=== PATIENT | male | born 1965 | race Caucasian/White ===

== ENCOUNTER 2019-09-10 06:07 | Inpatient (IN) ==
--- NOTE | 2019-08-14 16:01 | PAT Medication Instructions ---
Medication Instructions Date of Service August 14, 2019 Home Medications amlodipine-benazepril 1 cap PO QAM carvedilol 12.5 mg PO BID hydrochlorothiazide 12.5 mg PO QAM simvastatin 40 mg PO QAM valacyclovir [Valtrex] 500 mg PO BID PRN Continue as directed valacyclovir [Valtrex] 500 mg PO BID PRN (if needed) DO NOT take the morning of surgery amlodipine-benazepril 1 cap PO QAM hydrochlorothiazide 12.5 mg PO QAM Take morning of surgery With a small sip of water, OTHERWISE NOTHING TO EAT OR DRINK AFTER MIDNIGHT: carvedilol 12.5 mg PO BID simvastatin 40 mg PO QAM Other Notes If you have any questions please call us at [phone] or [phone] or or [phone]
--- NOTE | 2019-08-16 08:32 | History & Physical Report ---
Date of Service August 16, 2019 date of surgery: 09-10-19 Assessment & Plan (1) Primary localized osteoarthritis of right knee: Risks and benefits of procedure discussed in detail today, patient would like to proceed with a Right total knee replacement at [facility] as scheduled. will obtain medical clearance prior to surgery as well as obtain PATs at [facility]. Will place on ASA 81mg po bid x 1 month post op, f/u 2 weeks post op for routine post-operative care and x-ray, sooner if having any problems. will make arrangements for HHPT at the time of discharge. At this point in time, has failed conservative measures and would like to proceed with surgical intervention. History of Present Illness Chief Complaint: right knee pain Primary Care Provider: NO PCP Mr Adams is a 53 year old male who is here for a follow up of right knee pain, presents for pre-op evaluation prior to a right total knee replacement at [facility]. He presents with pain and decreased range of motion in the right knee. He states that the symptoms have been chronic non-traumatic and states symptoms occur constantly with intermittent worsening. Currently the patient states that the symptoms are moderate-severe and is described as aching and dull. He rates his current pain as 4/10 and worst is 7/10. The symptoms are aggravated by first steps while awake, daily activities, work activities, walking and squatting. Pt had synviscOne injections in the past with no relief. unable to take NSAIDs due to stomach irritation, occasional Tylenol use. at this point, pain is affecting his daily activities and would like to proceed with a Right total knee replacement. has also had previous knee scope as listed below. Allergies Allergy/AdvReac Type Severity Reaction Status Date / Time amoxicillin Allergy Intermediate Rash Verified 08/12/19 12:14 ibuprofen AdvReac Unknown upset Verified 08/12/19 12:15 stomach Home Medications Home Medications Medication Instructions Recorded Confirmed Type amlodipine-benazepril 1 cap PO QAM 08/12/19 08/12/19 History carvedilol 12.5 mg PO BID 08/12/19 08/12/19 History hydrochlorothiazide 12.5 mg PO QAM 08/12/19 08/12/19 History simvastatin 40 mg PO QAM 08/12/19 08/12/19 History valacyclovir [Valtrex] 500 mg PO BID PRN 08/12/19 08/12/19 History Past Med/Surg History Medical History Anxiety hx. no problems recently. Cardiac murmur as a child, no problems currently. Hyperlipidemia Hypertension Nausea and vomiting after administration of anesthetic agent Osteoarthritis Surgical History Fusion of spine with discectomy with C5-C6. Full ROM. History of adenoidectomy History of tonsillectomy S/P left knee arthroscopy x2 S/P right knee arthroscopy x2 Family History Aunt Family history of diabetes mellitus Grandmother Family history of esophageal cancer Social History Preferred Language: Scottish Communication Ability: Effective Grade And Center Marker Required: No Beliefs That Will Affect Care: None Current Living Situation: Spouse Other Information That Helps Us Care for You: No Feels Safe at Home: Yes Safety Concerns: Feels Safe At This Time Smoking Status: Never smoker Tobacco Type: smokeless tobacco ; Do You Dip or Chew Tobacco: Yes (2 cans/week (advised)) ; Second Hand Exposure: No ; Tobacco Cessation Education Requested by Patient: No Hx Alcohol Use: Yes Alcohol type: beer Hx Substance Use: No Review of Systems Review of Systems: All systems reviewed & are unremarkable except as noted in HPI & below Constitutional: no fever, no chills and no sweats Respiratory: no cough and no dyspnea Cardiovascular: no chest pain, no dyspnea and no orthopnea Gastrointestinal: no abdominal pain, no nausea and no vomiting Musculoskeletal: as per Subjective / HPI Physical Exam Physical Exam: Ht: 6ft Wt: 115.7kg BP: 118/76 Pulse: 80 Constitutional: WD/WN, vitals as above no acute distress Respiratory: normal respiratory effort, lungs clear to auscultation no respiratory distress, no labored breathing and does not use accessory muscles Cardiovascular: RRR, no murmur, no edema Gastrointestinal (Abdomen): normal bowel sounds, soft, nontender, no hepatosplenomegaly Musculoskeletal: Knee: + knee abnormal to inspection (RIGHT KNEE: ), + effusion (+1 effusion), + surgical incision (well healed portals), + limited ROM of knee (ROM 0/3/110), + knee ROM with crepitation, + joint line tenderness (me dial joint line) and + Luiz's sign positive; no skin erythema, no ecchymosis, no valgus laxity, no varus laxity, anterior drawer test negative, Darline's sign negative and pivot shift test negative Results & Data Diagnostic Findings right knee x-ray from 03/22/19 showing complete loss joint space medial compartment with overall varus alignment, there is also narrowing of the lateral compartment and patellofemoral joint. there is osteophyte formation, subchondral sclerosis noted, no loose bodies, no acute bony pathology. overall impression tricompartmental degenerative changes to the right knee.
--- NOTE | 2019-08-16 12:26 | Anesthesiology Consultation ---
Date of Service August 16, 2019 Assessment & Plan (1) Encounter for pre-operative examination: Chart Review Chart Review: Pending: Refer to Additional Notes / Consult section (pending preop testing (labs, EKG, CXR)) and Patient seen in Pre Admission Testing Teaching & Discussion Pre-Anesthesia Teaching/Discussion Notes: Instructed NPO after midnight before surgery,except medications with 15 cc of water. Medication instructions provid ed according to the PAT guidelines. History Surgery Operation Date: 09/10/19 08:55 Proposed Procedures p Right Total Knee Arthroplasty - Jose L Mitchell DO Height/Weight Height: 6 ft Weight: 118.3 kg Allergies Allergy/AdvReac Type Severity Reaction Status Date / Time amoxicillin Allergy Intermediate Rash Verified 08/12/19 12:14 ibuprofen AdvReac Unknown upset Verified 08/12/19 12:15 stomach Medications Home Medications Medication Instructions Recorded Confirmed Last Taken amlodipine-benazepril 1 cap PO QAM 08/12/19 08/12/19 Unknown carvedilol 12.5 mg PO BID 08/12/19 08/12/19 Unknown hydrochlorothiazide 12.5 mg PO QAM 08/12/19 08/12/19 Unknown simvastatin 40 mg PO QAM 08/12/19 08/12/19 Unknown valacyclovir [Valtrex] 500 mg PO BID PRN 08/12/19 08/12/19 Unknown Past Medical History Medical History Anxiety hx Hyperlipidemia Hypertension Obesity Osteoarthritis Exercise / Class Metabolic Activity II 4-5 Yardwork/Stairs/Walk up hill Past Family History Family History Aunt Family history of diabetes mellitus Grandmother Family history of esophageal cancer Past Surgical History Surgical History Fusion of spine C5-C6 History of adenoidectomy History of tonsillectomy S/P left knee arthroscopy x2 S/P right knee arthroscopy x2 Past Anesthesia History No Hx of Anesthesia Complications (except PONV) and No Family Hx of Anesthesia Complications History of PONV History of PONV and Hx of Motion Sickness (occasional) Social History Smoking Status: Never smoker Do You Dip or Chew Tobacco: Yes (2 cans/week (advised NPO)) Hx Alcohol Use: Yes Alcohol type: beer alcohol intake frequency: a few times a week Hx Substance Use: No substance use type: does not use Review of Systems Patient denies chest pain, shortness of breath, dyspnea on exertion, reflux, cough, wheezing, palpitations. Physical Exam Vital Signs VITALS BP 121/76 P 59 TEMP 98.0 SP02 98%RA RESP 16 PHYSICAL Full neck and c-spine range of motion. Full TMJ range of motion. TMD 3.5 finger breaths Mallampati Score 3 Dentition: missing molars Lungs: clear throughout to auscultation Cardiac: regular rate and rhythm, no murmurs noted Spine: normal Carotid arteries: negative bruit Extremities: no edema
--- NOTE | 2019-08-16 12:55 | XRay Report ---
XR chest Pre-admission PA/Lat CLINICAL HISTORY: 53 years-old Male presenting with preoperative assessment. TECHNIQUE: PA and lateral views of the chest were obtained. COMPARISON: None. FINDINGS: Cardiac silhouette top normal in size. Lungs and pleural spaces clear. Degenerative changes of the th oracic spine. Upper abdomen normal. IMPRESSION: 1. No acute cardiopulmonary disease. Electronically signed by: Oscar Yoder M.D. 08/16/2019 12:54 PM
[2019-08-16 14:31] LABS: Basophils # (auto) 0.05 K/uL (0-0.2); Basophils % (auto) 0.7 %; Eosinophils # (auto) 0.42 K/uL (0-0.5); Eosinophils % (auto) 5.9 %; Hematocrit (blood only) 41.7 % (42-52); Immature Granulocytes # (auto) 0.03 K/uL (0.00-0.02); Immature Granulocytes % (auto) 0.4 %; Lymphocytes # (auto) 2.07 K/uL (1.2-3.4); Mean Corpuscular Hemoglobin 29.2 pg (25-34); Mean Corpuscular Hgb Conc 33.6 g/dL (32-36); Mean Corpuscular Volume 86.9 fL (80-100); Mean Platelet Volume 10.5 fL (7.4-10.4); Monocytes # (auto) 0.51 K/uL (0.11-0.59); Monocytes % (auto) 7.1 %; Neutrophils # (auto) 4.06 K/uL (1.4-6.5); Neutrophils % (auto) 56.9 %; Platelet Count 280 K/uL (130-400); RDW Coefficient of Variation 12.7 % (11.5-14.5); RDW Standard Deviation 40.9 fL (36.4-46.3); White Blood Count 7.14 K/uL (4.8-10.8)
[2019-08-16 14:34] LABS: Appearance Urine Clear (Clear); Bilirubin Urine Negative (Negative); Blood Urine Negative (Negative); Color Urine Yellow; Glucose Urine UA Negative (Negative); Ketones Urine Negative (Negative); Leukocyte Esterase Urine Negative (Negative); Nitrite Urine Negative (Negative); Protein Urine Negative (Negative); Specific Gravity Urine 1.016 (1.000-1.030); Urobilinogen Urine Negative (Negative); pH Urine 7.5 (4.5-7.5)
[2019-08-16 14:38] LABS: Albumin Level 3.9 gm/dl (3.4-5.0); BUN Creatinine Ratio 12.8 (10-20); Calcium 9.3 mg/dl (8.5-10.1); Creatinine Clr Calc Pharmacy 110.8 ml/min; Est GFR (African American) 97.8; Est GFR (Non-African American) 84.4; Potassium 3.8 mmol/L (3.5-5.1)
[2019-08-16 14:41] LABS: Partial Thromboplastin Time 26.1 Seconds (21.0-31.0); Prothrombin Time 10.6 Seconds (9.0-12.0)
[2019-08-17 06:27] LABS: Estimated Average Glucose 120 mg/dl; Hemoglobin A1C 5.8 % (4.5-5.6)
[~2019-09-10 06:07] MED LIST: ACETAMINOPHEN 500 MG TAB PO SCH; CLINDAMYCIN 600 MG/54 ML BAG IV SCH; CeleBREX 200 MG CAP PO SCH; FAMOTIDINE 20 MG TAB PO SCH; GABAPENTIN 600 MG DOSE PO SCH; LR 15ML/HR IV SCH; LR 500ML BOLUS, THEN 15ML/HR IV SCH; METOCLOPRAMIDE HCL 10 MG TABLET PO SCH; ROPIVACAINE 0.5% HCL/PF 150 MG, BUPIVACAINE 0.5% MPF 30 ML, EPINEPHrine 30MG/30ML (OR U... INFIL SCH; TRANEXAMIC ACID 1,000 MG **IV Pre-op IV SCH; dexAMETHasone 4 MG TAB PO SCH
[2019-09-10] MEDS ORDERED: BUPIVACAINE 0.5 % 5 MG/1 ML PF 10ML VIAL ONE (06:23)
[2019-09-10] MEDS ORDERED: PROPOFOL IV EMULSION 10 MG/ML 20 ML VIAL IV ONE ×2 (06:30→10:24)
[2019-09-10] MEDS ORDERED: LIDOCAINE HCL 2% 2 ML VIAL/AMP(20MG/ML) INFIL ONE (06:30)
[2019-09-10] MEDS ORDERED: TRANEXAMIC ACID 1,000 MG **IV Intra-op IV SCH (06:30)
[2019-09-10] MEDS ORDERED: MIDAZOLAM HCL 1 MG/ML 2ML VIAL ONE ×2 (06:30→10:07)
[2019-09-10] MEDS ORDERED: fentaNYL citrate 100 MCG/2 ML VIAL ONE (06:30)
--- NOTE | 2019-09-10 07:11 | History & Physical Bridge Note ---
Date of Service September 10, 2019 History & Physical Bridge Note I have examined the patient, reviewed the History & Physical and in the interval since the performance of the History & Physical I have noted the following changes of clinical significance: no changes noted
[2019-09-10] MEDS ORDERED: ATROPINE SULFATE 0.1 MG/ML 10ML SYR IV PRN (07:19)
[2019-09-10] MEDS ORDERED: fentaNYL citrate 100 MCG/2 ML VIAL IV PRN (07:19)
[2019-09-10] MEDS ORDERED: ONDANSETRON INJ 2 MG/ML 2 ML VIAL IV PRN ×2 (07:19→11:59)
[2019-09-10] MEDS ORDERED: ePHEDrine sulfate 50 MG/ML AMP IV PRN (07:19)
[2019-09-10] MEDS ORDERED: ORTHO JOINT ANESTHETIC ONE (08:03)
[2019-09-10] MEDS ORDERED: BACITRACIN INJ 50,000 UNIT VIAL ONE (08:03)
--- NOTE | 2019-09-10 09:52 | Operative Report ---
Post Operative Report Pre & Post Diagnosis Operation Date: 09/10/19 08:35 Pre-Op Diagnosis: RIGHT KNEE OSTEOARTHRITIS Post-Op Diagnosis: RIGHT KNEE OSTEOARTHRITIS I identified the patient and participated in the time-out.: Yes Procedure Operation Date: 09/10/19 08:35 Actual Procedures p Right Total Knee Arthroplasty(Right) utilizing [employer] journey 2 patient matched total knee arthroplasty size 6 femur 7 tibia 13 poly-32 oval patella- Jose L Mitchell DO Surgeon Jose L Mitchell DO Principal Clerk Michael WONG Estimated Blood Loss 5 Findings Consistent with Post-Op Diagnosis Patient presents with severe end-stage DJD right knee with varus alignment subchondral cystic changes marginal osteophytes moderate to large effusion eburnated [id number] tricompartmentally Specimens Bone cartilage Drains Medium bore Hemovac Complications none Disposition Accompanied Patient To Recovery: No Disposition: Recovery Room Indications Patient presents as a [age]-year-old white male being seen by with planes of ongoing pain to the right knee for right total knee arthroplasty patient is failed attempted conservative management with physical therapy anti-in flammatories relative rest activity modification corticosteroid injections Visco supplementation the above intraoperative findings were noted. Description of Procedure After proper identification of the patientAfter proper prepping and draping of the Right lower extremity anterior midline incision was made over the region of the extensor extensor mechanism after meticulous hemostasis was obtained and maintained in subcutaneous tissues a medial parapatellar incision was made The patella was subluxed lateralward the medial lateral gutter were cleaned from any hypertrophic synovitis and scar tissue of the distal femoral block was placed and the distal femoral osteotomy cut was made subsequently the chamfers anterior and posterior osteotomy cuts were made utilizing the 4-in-1 block the tibia was subsequently subluxed anteriorward medial and ateral meniscal remnants were excised in their entirety remnants of the anterior and posterior cruciate ligaments were excised in their entirety excellent exposure of the proximal tibia was obtained the tibial osteotomy guide was placed on the proximal tibial osteotomy cut was made once again the knee was irrigated with copious amounts of sterile saline solution the patella was subsequently everted lateralward thickened scar tissue around the patella was removed the patella was subseq uently cut utilizing a freehand technique and was drilled prepared for final preparation and placement of patella socially flexion-extension gaps were checked and the equal and symmetric trials were placed to the appropriate femoral and tibial trials with poly-spacer being placed for equal flexion and extension gaps and full range of motion including extension to 0 and flexion to 140 the trial components after having been taken to recovery range of motion was subsequently removed meticulous hemostasis was obtained and maintained subsequently a knee block injection of joint cocktail including ropivacaine 0.5% 150 mg. Bupivacaine 0.5% epinephrine 1-200,030 mL's toradol 30 mg dexamethasone 4 mg ketamine 10 mg clonidine 100 micrograms normal saline solution 30 mg was infiltrated into the soft tissues of the posterior knee medial lateral gutters and periosteal synovium special attention was paid to protect neurovascular structures at all times subsequently trial components having been removed the knee was irrigated with sterile saline solution. debris was removed the proximal tibia was subsequently prepared and was made ready for the placement of the tibial component tibial component was also cemented and tamped into position the femoral component was subsequently placed and cemented in the position the patellar component was subsequently cemented in position because hemostasis once again obtained and maintained wound having been thoroughly irrigated with debridement and debridement lavage was performed as well as a medial parapatellar incision closed with #1 Vicryl in interrupted fashion subcutaneous was closed with #2 Vicryl skin was closed with skin clips. PA-C was necessary for prepping and drapping as well as wound closure of deep fascia Sub cutaneous tissue and skin and was necessary for the case. A sterile compressive dressing was placed patient was taken to recovery in stable condition of report dictated by Stephen I attest to the content of the Intraoperative Record and any orders documented therein. Any exceptions are noted below. I attest to the content of the Intraoperative Record and any orders documented therein. Any exceptions are noted below.
--- NOTE | 2019-09-10 11:00 | XRay Report ---
XR knee RT 1 or 2V routine HISTORY: 53 years-old Male Surgical Post Op right knee total joint arthroplasty. COMPARISON: None available TECHNIQUE: 2 views of the right knee FINDINGS: Right knee total joint arthroplasty and patella resurfacing demonstrates satisfactory alignment. Elec tronic battery pack device projects over the distal thigh. Surgical drainage catheter is noted along with expected postsurgical soft tissue swelling and deep tissue air. No acute fracture, dislocation o r opaque foreign body identified. IMPRESSION: Satisfactory alignment of the right knee total joint arthroplasty. The above report was generated using voice recognition software. It may contain grammatical, syntax o r spelling errors. Electronically signed by: Rufino Uribe M.D. 09/10/2019 10:58 AM
--- NOTE | 2019-09-10 11:06 | Anesthesiology Progress Note ---
Date of Service September 10, 2019 Anesthesia Post Procedure Vital Signs Vital Signs: Temp Pulse Pulse Resp BP Pulse Ox 09/10/19 11:00 74 14 111/66 96 09/10/19 10:50 68 14 109/65 98 09/10/19 10:44 97.5 F L 76 12 111/65 96 09/10/19 06:45 98.1 F 69 20 127/89 98 Pain Intensity Right Knee: Pain Intensity: 2 Transfer of Care Handoff Completed per policy Notes Mental Status: alert / awake / arousable and participated in evaluation Patient Amnestic to Procedure: Yes Nausea / Vomiting: adequately controlled Pain: adequately controlled Airway Patency, RR, SpO2: stable & adequate BP & HR: stable & adequate Hydration State: stable & adequate Neuraxial Anesthesia: was administered and sensory block is resolving Anesthetic Complications: no major complications apparent and Pt Satisfied with anesthetic care
[2019-09-10] MEDS ORDERED: NALOXONE HCL 0.4 MG/1 ML VIAL/CARP IV PRN (11:59)
[2019-09-10] MEDS ORDERED: bisacodyL 10 MG SUPP PR PRN (11:59)
[2019-09-10] MEDS ORDERED: MAGNESIUM HYDROXIDE SUSP 30 ML UDC PO PRN (11:59)
[2019-09-10] MEDS: OXYCODONE HCL IR 5 MG TAB (IMMEDIATE RELEASE) PO PRN ×2 (12:28→23:47)
[2019-09-10] MEDS: SODIUM CHLORIDE 0.9% 1000ML 1,000 ML IV SCH ×2 (13:12→22:06)
[2019-09-10] MEDS: HYDROmorphone INJ 0.5 MG/0.5 ML SYR IV PRN (13:15)
[2019-09-10] MEDS: ACETAMINOPHEN 500 MG TAB PO SCH ×2 (13:16→22:06)
[2019-09-10] MEDS: CLINDAMYCIN 600 MG in DEXTROSE 5% 50 ML IV SCH ×2 (16:27→23:43)
[2019-09-10] MEDS: SENNA 8.6 MG TAB PO SCH (20:46)
[2019-09-10] MEDS: ASPIRIN 81 MG ECTAB PO SCH (20:47)
[2019-09-10] MEDS: DOCUSATE SODIUM 100 MG CAP PO SCH (20:47)
[2019-09-10] MEDS: carvediloL 12.5 MG TAB PO SCH (20:47)
[2019-09-11] MEDS: ACETAMINOPHEN 500 MG TAB PO SCH ×3 (05:28→21:10)
[2019-09-11 06:05] LABS: Hematocrit (blood only) 38.9 % (42-52); Mean Corpuscular Hemoglobin 29.5 pg (25-34); Mean Corpuscular Hgb Conc 33.4 g/dL (32-36); Mean Corpuscular Volume 88.4 fL (80-100); Mean Platelet Volume 10.4 fL (7.4-10.4); Platelet Count 256 K/uL (130-400); RDW Coefficient of Variation 12.7 % (11.5-14.5); RDW Standard Deviation 40.9 fL (36.4-46.3); White Blood Count 21.37 K/uL (4.8-10.8)
[2019-09-11 06:43] LABS: BUN Creatinine Ratio 15.4 (10-20); Calcium 8.6 mg/dl (8.5-10.1); Creatinine Clr Calc Pharmacy 101.4 ml/min; Est GFR (African American) 88.1; Potassium 3.9 mmol/L (3.5-5.1)
[2019-09-11] MEDS: carvediloL 12.5 MG TAB PO SCH ×2 (08:40→20:53)
[2019-09-11] MEDS: DOCUSATE SODIUM 100 MG CAP PO SCH ×2 (08:40→20:51)
[2019-09-11] MEDS: ASPIRIN 81 MG ECTAB PO SCH ×2 (08:41→20:54)
[2019-09-11] MEDS: ENALAPRIL MALEATE 10 MG TAB PO SCH (08:41)
[2019-09-11] MEDS: AMLODIPINE BESYLATE 5 MG TAB PO SCH (08:41)
[2019-09-11] MEDS: MULTIVITAMIN TAB PO SCH (08:41)
[2019-09-11] MEDS: OXYCODONE HCL IR 5 MG TAB (IMMEDIATE RELEASE) PO PRN ×3 (08:41→17:46)
[2019-09-11] MEDS: SIMVASTATIN 40 MG TAB PO SCH (08:41)
--- NOTE | 2019-09-11 10:03 | Orthopedic Progress Note ---
Date of Service September 11, 2019 Assessment & Plan (1) History of total right knee replacement: POD #1 s/p Right TKA pt/ot dvt proph with SHABANA/SCD/ASA plan for d/c home with HHPT when stable Subjective POD #1 s/p Right TKA Review of Systems Constitutional: no fever, no chills and no sweats Respiratory: no cough and no dyspnea Cardiovascular: no chest pain and no dyspnea Gastrointestinal: no abdominal pain, no nausea and no vomiting Physical Exam Physical Exam: Vital Signs Temp 36.4 C L 09/11/19 07:50 Pulse 68 09/11/19 07:50 Resp 16 09/11/19 07:50 BP 128/70 09/11/19 07:50 Pulse Ox 96 09/11/19 07:50 Intake & Output 09/10/19 09/11/19 09/11/19 18:59 06:59 18:59 Intake Total 2278 / 4507 2229 / 4507 222 / 222 Output Total 530 / 1480 950 / 1480 Balance 1748 / 3027 1279 / 3027 222 / 222 Weight 117.707 kg Intake: IV 1608 / 3087 1479 / 3087 Cleocin 600 mg In D5w 50 ml @ 54 / 108 54 / 108 100 mls/hr IV Q8H BETTY Rx#: [id number] CLEOCIN 600 mg In 54 ml @ 100 54 / 54 mls/hr IV PREO P BETTY Rx#: [id number] Lr 1,000 ml @ 15 mls/hr IV . 1000 / 1000 Q24H BETTY Rx#:[id number] Nss 1000ML 1,0 00 ml @ 100 mls/ 280 / 1705 1425 / 1705 hr IV .Q10H SC H Rx#:[id number] Cyklokapron 1, 000 mg In Sodium 220 / 220 Chloride 100 m l @ 660 mls/hr IV TODAY@0600 [facility] Rx#:[id number] IV Perioperative 550 / 550 Oral 120 / 870 750 / 870 222 / 222 Output: Urine 375 / 800 425 / 800 Estimated Blood Loss 5 / 5 Drain Output 150 / 675 525 / 675 Right Knee Hem ovac 150 / 675 525 / 675 Constitutional: WD/WN, vitals as above no acute distress Musculoskeletal: Right Leg: NVDI, calf SNT, negative foster sign. DP palpable, able to wiggle toes/ankle movement without difficulty. dressing clean dry and intact. Results & Data Vital Signs (Past 12 Hours) Vital Signs Temp Pulse Pulse Resp BP Pulse Ox 09/11/19 07:50 36.4 C L 68 16 128/70 96 09/11/19 03:07 36.5 C 60 16 112/70 97 09/10/19 23:31 36.5 C 60 16 127/71 96 Laboratory Results Laboratory Results WBC 21.37 K/uL (4.8-10.8) H 09/11/19 05:46 RBC 4.40 M/uL (4.7-6.1) L 09/11/19 05:46 Hgb 13.0 g/dL (14.0-18.0) L 09/11/19 05:46 Hct 38.9 % (42-52) L 09/11/19 05:46 MCV 88.4 fL (80-100) 09/11/19 05:46 MCH 29.5 pg (25-34) 09/11/19 05:46 MCHC 33.4 g/dL (32-36) 09/11/19 05:46 RDW Std Deviation 40.9 fL (36.4-46.3) 09/11/19 05:46 RDW Coeff of Jaylin 12.7 % (11.5-14.5) 09/11/19 05:46 Plt Count 256 K/uL (130-400) 09/11/19 05:46 MPV 10.4 fL (7.4-10.4) 09/11/19 05:46 Immature Gran % (Auto) 0.4 % 08/16/19 12:12 Neut % (Auto) 56.9 % 08/16/19 12:12 Lymph % (Auto) 29.0 % 08/16/19 12:12 [place] % (Auto) 7.1 % 08/16/19 12:12 Eos % (Auto) 5.9 % 08/16/19 12:12 Baso % (Auto) 0.7 % 08/16/19 12:12 Immature Gran # (Auto) 0.03 K/uL (0.00-0.02) H 08/16/19 12:12 Neut # (Auto) 4.06 K/uL (1.4-6.5) 08/16/19 12:12 Lymph # (Auto) 2.07 K/uL (1.2-3.4) 08/16/19 12:12 [place] # (Auto) 0.51 K/uL (0.11-0.59) 08/16/19 12:12 Eos # (Auto) 0.42 K/uL (0-0.5) 08/16/19 12:12 Baso # (Auto) 0.05 K/uL (0-0.2) 08/16/19 12:12 PT 10.6 Seconds (9.0-12.0) 08/16/19 12:12 INR 1.0 (0.9-1.1) 08/16/19 12:12 APTT 26.1 Seconds (21.0-31.0) 08/16/19 12:12 PTT Ratio 1.0 08/16/19 12:12 Sodium 139 mmol/L (136-145) 09/11/19 05:46 Potassium 3.9 mmol/L (3.5-5.1) 09/11/19 05:46 Chloride 107 mmol/L (98-107) 09/11/19 05:46 Carbon Dioxide 26 mmol/L (21-32) 09/11/19 05:46 Anion Gap 6.0 (3-11) 09/11/19 05:46 BUN 17 mg/dl (7-18) 09/11/19 05:46 Creatinine 1.09 mg/dl (0.6-1.4) 09/11/19 05:46 Est Cr Clr Drug Dosing 101.4 ml/min 09/11/19 05:46 Est GFR ( Amer) 88.1 09/11/19 05:46 Est GFR (Non-Af Amer) 76.0 09/11/19 05:46 BUN/Creatinine Ratio 15.4 (10-20) 09/11/19 05:46 Glucose 121 mg/dl (70-99) H 09/11/19 05:46 Estimat Average Glucose 120 mg/dl 08/16/19 12:12 Hemoglobin A1c 5.8 % (4.5-5.6) H 08/16/19 12:12 Calcium 8.6 mg/dl (8.5-10.1) 09/11/19 05:46 Albumin 3.9 gm/dl (3.4-5.0) 08/16/19 12:12 Urine Color Yellow 08/16/19 12:12 Urine Appearance Clear (Clear) 08/16/19 12:12 Urine pH 7.5 (4.5-7.5) 08/16/19 12:12 Ur Specific [place] 1.016 (1.000-1.030) 08/16/19 12:12 Urine Protein Negative (Negative) 08/16/19 12:12 Urine Glucose (UA) Negative (Negative) 08/16/19 12:12 Urine Ketones Negative (Negative) 08/16/19 12:12 Urine Blood Negative (Negative) 08/16/19 12:12 Urine Nitrite Negative (Negative) 08/16/19 12:12 Urine Bilirubin Negative (Negative) 08/16/19 12:12 Urine Urobilinogen Negative (Negative) 08/16/19 12:12 Ur Leukocyte Esterase Negative (Negative) 08/16/19 12:12 Hepatitis C Ab Screen Neg (Neg) 09/11/19 05:46 Blood Type B Positive 08/16/19 12:12 Antibody Screen NEGATIVE 08/16/19 12:12 Diagnostic Findings XR knee RT 1 or 2V routine HISTORY: 53 years-old Male Surgical Post Op right knee total joint arthroplasty. COMPARISON: None available TECHNIQUE: 2 views of the right knee FINDINGS: Right knee total joint arthroplasty and patella resurfacing demonstrates satisfactory alignment. Electronic battery pack device projects over the distal thigh. Surgical drainage catheter is noted along with expected postsurgical soft tissue swelling and deep tissue air. No acute fracture, dislocation or opaque foreign body identified. IMPRESSION: Satisfactory alignment of the right knee total joint arthroplasty.
[2019-09-11] MEDS: SENNA 8.6 MG TAB PO SCH (20:54)
[2019-09-12] MEDS: ACETAMINOPHEN 500 MG TAB PO SCH (05:34)
--- NOTE | 2019-09-12 07:21 | Orthopedic Progress Note ---
Date of Service September 12, 2019 Assessment & Plan (1) History of total right knee replacement: POD #2 s/p Right TKA pt/ot dvt proph with SHABANA/SCD/ASA plan for d/c home with HHPT when stable Subjective POD #2 s/p Right TKA Review of Systems Review of Systems: All systems reviewed & are unremarkable except as noted in HPI & below Cardiovascular: no chest pain and no dyspnea Gastrointestinal: no nausea and no vomiting Physical Exam Physical Exam: Vital Signs Temp 36.5 C 09/11/19 23:27 Pulse 55 L 09/11/19 23:27 Resp 16 09/11/19 23:27 BP 130/73 09/11/19 23:27 Pulse Ox 99 09/11/19 23:27 Intake & Output 09/11/1909/12/09/12/19 18:59 06:59 18:59 Intake Total 1330 / 1880 550 / 1880 Output Total 375 / 375 Balance 1330 / 1505 175 / 1505 Intake: Oral 1330 / 1880 550 / 1880 Output: Drain Output 375 / 375 Right Knee Hem ovac 375 / 375 Other: # Unmeasured Voi ds 1 1 Constitutional: WD/WN, vitals as above no acute distress Musculoskeletal: right knee: NVDI, calf SNT, negative foster sign. DP palpable, able to wiggle toes/ankle movement without difficulty. dressing clean dry and intact. expected post-operative bruising noted. Results & Data Vital Signs (Past 12 Hours) Vital Signs Temp Pulse Resp BP Pulse Ox 09/11/19 23:27 36.5 C 55 L 16 130/73 99
[2019-09-12] MEDS: carvediloL 12.5 MG TAB PO SCH (08:27)
[2019-09-12] MEDS: DOCUSATE SODIUM 100 MG CAP PO SCH (08:27)
[2019-09-12] MEDS: ASPIRIN 81 MG ECTAB PO SCH (08:28)
[2019-09-12] MEDS: ENALAPRIL MALEATE 10 MG TAB PO SCH (08:28)
[2019-09-12] MEDS: AMLODIPINE BESYLATE 5 MG TAB PO SCH (08:28)
[2019-09-12] MEDS: MULTIVITAMIN TAB PO SCH (08:28)
[2019-09-12] MEDS: SIMVASTATIN 40 MG TAB PO SCH (08:29)
[2019-09-12] MEDS: OXYCODONE HCL IR 5 MG TAB (IMMEDIATE RELEASE) PO PRN (08:33)
[2019-09-12] MEDS: HYDROmorphone INJ 0.5 MG/0.5 ML SYR IV PRN (09:44)
--- NOTE | 2019-09-18 10:26 | Discharge Summary ---
Date of Service September 18, 2019 Admission HPI Per Admitting Provider Mr Adams is a 53 year old male who is here for a follow up of right knee pain, presents for pre-op evaluation prior to a right total knee replacement at [facility]. He presents with pain and decreased range of motion in the right knee. He states that the symptoms have been chronic non-traumatic and states symptoms occur constantly with intermittent worsening. Currently the patient states that the symptoms are moderate-severe and is described as aching and dull. He rates his current pain as 4/10 and worst is 7/10. The symptoms are aggravated by first steps while awake, daily activities, work activities, walking and squatting. Pt had synviscOne injections in the past with no relief. unable to take NSAIDs due to stomach irritation, occasional Tylenol use. at this point, pain is affecting his daily activities and would like to proceed with a Right total knee replacement. has also had previous knee scope as listed below. Admission Exam Per Admitting Provider Physical Exam: Ht: 6ft Wt: 115.7kg BP: 118/76 Pulse: 80 Constitutional: WD/WN, vitals as above no acute distress Respiratory: normal respiratory effort, lungs clear to auscultation no respiratory distress, no labored breathing and does not use accessory muscles Cardiovascular: RRR, no murmur, no edema Gastrointestinal (Abdomen): normal bowel sounds, soft, nontender, no hepatosplenomegaly Musculoskeletal: Knee: + knee abnormal to inspection (RIGHT KNEE: ), + effusion (+1 effusion), + surgical incision (well healed portals), + limited ROM of knee (ROM 0/3/110), + knee ROM with crepitation, + joint line tenderness (medial joint line) and + Luiz's sign positive; no skin erythema, no ecchymosis, no valgus laxity, no varus laxity, anterior drawer test negative, Darline's sign negative and pivot shift test negative Principal Diagnosis Right Knee Osteoarthritis Discharge Exam Constitutional: WD/WN, vitals as above no acute distress Musculoskeletal: right knee: NVDI, calf SNT, negative foster sign. DP palpable, able to wiggle toes/ankle movement without difficulty. dressing clean dry and intact. expected post-operative bruising noted Discharge Data Allergies Allergy/AdvReac Type Severity Reaction Status Date / Time amoxicillin Allergy Intermediate Rash Verified 09/10/19 06:37 ibuprofen AdvReac Unknown upset Verified 09/10/19 06:37 stomach Consultations 09/10/19 11:59 Consult Case Management - Discharge Planning Routine Procedures Performed Operation Date: 09/10/19 08:35 Actual Procedures p Right Total Knee Arthroplasty(Right) - Jose L Mitchell DO Ordered Studies 09/10/19 05:00 US - OR guided needle placemen Routine Hospital Course (1) Primary localized osteoarthritis of right knee: Patient was admitted on the above-noted date and had the above-noted surgery performed which he tolerated well. On the first postoperative day, pain control is adequate. Patient denied shortness of breath chest pain or lightheadedness. Vital signs are stable. Dressings were clean dry and intact. Neurovascular is intact. Calves are soft nontender. They were started on PT and OT protocols along with DVT prophylaxis and pain management.By the second postoperative day., The continued to remain stable. Pain was controlled and they had no complaints. Vital signs are stable. Dressing remained clean, dry, and intact. Calves are soft nontender. Neurovascular is intact. Patient was remaining stable and progressing with physical therapy and was felt that they can be discharged home with home health services. Total Time Total Time Spent Total Time Spent (In Minutes): 5 Discharge Plan Discharge Items Patient Disposition: Home - Home Health Services Reason For Visit: RIGHT KNEE OSTEOARTHRITIS Discharge Diagnosis: right total knee replacement Condition on Discharge: Good Activity: Per Instructions section Lifting: Wait until after follow-up appointment Weightbearing: Full weightbearing and Right weightbearing Non-emergency contact: Surgeon Call non-emergency contact if: your temperature is above 101, your wound has increased redness, your wound has increased drainage and your wound pain has increased Follow-up/Referrals: Romie Verma PA-C [Primary Care Provider] - Diet: Regular Addtl Attending Provider Instructions: ACTIVITY RECOMMENDATIONS: SELF CARE INSTRUCTIONS AFTER TOTAL KNEE REPLACEMENT A. You may need to continue a physical therapy program after discharge from the hospital. There are several options available to you. Your doctor will assist you in selecting the best one for you. 1. An out-patient facility 2 to 3 times a week for therapy or home therapy. 2. Continue working on all exercises taught to you in the hospital. Your goals should be to increase bending of your knee to 90 degrees and beyond and to fully straighten your knee. B. You may progress at your own pace from walking with a walker or crutches to a cane; then to no assistive devices. C. Make walking a part of your daily routine. Be up as much as comfortable with rest periods throughout the day. Rest with leg elevation is very important. Use the ice wrap frequently for the first 3-4 weeks. D. There are no restrictions on activities. You may ride in a car, shop, participate in station superintendent and all social activities. E. Wear the long elastic stockings (SHABANA hose) 20 hours a day for 2 weeks after surgery. They can be removed several times a day for laundering and for a bath. F. You may shower, no tub baths until cleared by your doctor. SPECIAL CARE INSTRUCTIONS: VERY IMPORTANT TO READ AND REVIEW A. There are a few signs you need to watch for after you are home. Call [facility] if you notice any of the followin. Increased severe knee pain. Some pain is expected especially when you exercise. 2. Increased swelling in your leg or knee; pain or swelling of the calf muscle in either lower leg. 3. Any fluid drainage from the incision. 4. Shortness of breath or chest pain. B. Please call [facility] at if you have any concerns or questions about your operation or recovery. The doctor or his nurse will return your call promptly. C. You must take antibiotics before dental work, bladder, bowel or other surgery. Your doctor will provide you with a permanent care to carry describing this precaution. IMPORTANT: * REMEMBER TO TAKE ASPIRIN, 81 MG, TWICE DAILY FOR 4 WEEKS UNLESS OTHERWISE DIRECTED. THIS IS YOUR BLOOD THINNER. * HIGH RISK PATIENTS MAY BE PRESCRIBED A STRONGER BLOOD THINNER. THIS WILL BE PROVIDED AT DISCHARGE. * CALL IF INCREASED PAIN, REDNESS, DRAINAGE OR FEVER GREATER THAT 101. * WEAR SHABANA HOSE 20 HOURS PER DAY FOR 2 WEEKS. * CHACORTA Dressing- This is a large suction dressing covering your incision. This will help pull any excess drainage from the wound and allow your incision to heal properly. You may shower with this if you can keep the unit outside of the shower. If any bleeding or leakage is noted please call your doctor's office. This will remain on your incision for 7 days and then should be removed. This can be done yourself or by the home nursing staff if applicable. The entire unit is disposable once removed. Once removed, keep incision clean and dry. If redness or drainage is noted, please call your surgeon. DERMABOND Prineo- This is a mesh tape dressing that is covered with glue. It should remain in place until the incision is properly healed, usually 10-14 days. This dressing is designed to naturally slough off. You may trim the excess mesh tape as it peels off. Incision may be briefly wet in a shower. Dry immediately by blotting with a clean, dry towel. Do not bath or swim until instructed by your doctor. Do not scratch, rub, or pick at the dressing. Do not apply any topical ointments or lotions until dressing is completely removed and/or instructed by your doctor. There may be a small piece of suture material at one end of your incision. Do not pull or trim this. If it is bothersome or catching on clothing, you may cover it with a band-aid. IF INCISION IS LEAKING THROUGH DRESSING, CALL THE OFFICE . FOLLOW UP VISIT: If appointment is not already scheduled: Please call [facility] to make a follow-up appointment for 2 weeks after your surgery at . Pending Studies at Discharge: No Stand-Alone Forms: [facility], Opioid Pain Management, Smoking Cessation Medications and DC Order Prescriptions: New aspirin [Ecotrin Low Strength] 81 mg Tablet,Delayed Release (Dr/Ec) 81 mg PO BID 30 Days Qty: 60 RF: 0 acetaminophen [Tylenol Extra Strength] 500 mg Tablet 1,000 mg PO Q8 14 Days Qty: 84 RF: 0 oxycodone 5 mg Tablet 5 - 10 mg PO Q6H PRN (Reason: pain) Qty: 30 RF: 0 docusate sodium 100 mg Capsule 100 mg PO BID 10 Days Qty: 20 RF: 0 clindamycin HCl 300 mg capsule 300 mg PO TID 7 Days Qty: 21 RF: 0 Continued carvedilol 12.5 mg Tablet 12.5 mg PO BID RF: 0 valacyclovir [Valtrex] 500 mg Tablet 500 mg PO BID PRN (Reason: Cold Sores) RF: 0 simvastatin 40 mg Tablet 40 mg PO QAM RF: 0 amlodipine-benazepril 10-40 mg Capsule 1 cap PO QAM RF: 0 hydrochlorothiazide 12.5 mg Tablet 12.5 mg PO QAM RF: 0 Discharge Orders: Discharge Order (Routine); Ordered 09/12/19 Ordered By: Liam Jarquin/Other Patient Handouts: Surgery Prevent DVT After, ED Stockings Shabana Admission Data Admit Date/Time: 09/10/19 10:48 Attending Provider: Jose L Mitchell Admit Provider: Jose L Mitchell Primary Care Provider: Romie Verma Other Interventions: Discharge Summary Assessment (RN) Last Done: 09/12/19 09:03 DC Date/Time DO NOT enter until pt leaves facility: 09/12/19 11:46
== END 2019-09-12 11:46 | disposition home health service (06) | DRG 470 ==
LOC: ASU 06:07 → 3E 10:48